=== PATIENT | male | born 1990 | race Hispanic/Latino ===

== ENCOUNTER 2020-07-12 21:59 | Emergency (ER) | payer BC ==
[2020-07-12] MEDS ORDERED: ACETAMINOPHEN EXTRA STRENGTH 500 MG TABLET ONE (23:50)
== END 2020-07-13 01:55 | disposition home or self-care (01) ==
LOC: EDH 21:59
DX: R50.9 Fever, unspecified (principal); R51.9 Headache, unspecified; M79.10 Myalgia, unspecified site; Z20.822 Contact with and (suspected) exposure to COVID-19
CPT/HCPCS: 87426; 87804 ×2; 99283; U0003